=== PATIENT | female | born 1990 | race Caucasian/White ===

== ENCOUNTER → 2019-08-13 10:44 | Outpatient (BNVA) | payer BC, SELFPAY | PROVIDERS: Visit Provider Nurse Practitioner | DX: J02.9 Acute pharyngitis, unspecified (principal) | CPT/HCPCS: 87880 ==

== ENCOUNTER 2023-12-12 05:37 | Inpatient (IN) | payer BC, SELFPAY ==
--- NOTE | 2023-11-29 08:51 | P.ANESASSM_ITS ---
Pre-Anesthetic Assessment Height/Weight: Height 1.6 m Operation Date: 12/12/23 07:00 Proposed Procedures p Section Repeat(Not Applicable) - Mio Brown MD Familial anesthetic complications: C/S following complicated child Was Beta Alicia taken within 24 hours: N/A Was Clonidine taken within 24 hours: N/A Social No alcohol and No tobacco Exam alert, oriented x 3, clear to auscultation bilaterally and regular rate & rhythm Airway Submandibular: within normal limits Cervical ROM: within normal limits Mallampati: Class II Dentition: full Anesthetic Plan ASA status: 2 Anesthesia: Regional (specify below) (SAB) Other: Previous vaginal delivery with complications, this elective section. Medications/Allergies Home Medications Medication Instructions Recorded Confirmed Last Taken Type aspirin 81 mg tablet,delayed 81 mg PO DAILY 08/13/19 08/13/19 Unknown History release (Aspir-) azithromycin 500 mg tablet 500 mg PO DAILY #5 tabs 08/13/19 08/13/19 Unknown Rx (Zithromax) clomiphene citrate 50 mg tablet 50 mg PO DAILY 08/13/19 08/13/19 Unknown History lidocaine HCl 2 % mucosal solution 5 ml mucous membrane Q4H #100 mL 08/13/19 08/13/19 Unknown Rx (Lidocaine Viscous) Allergies Allergy/AdvReac Type Severity Reaction Status Date / Time No Known Allergies Allergy Unverified 08/13/19 08:14 [facility] Anesthesia Medical History (Updated 08/19/19 @ 20:13 by CHANA Molina) PCO (polycystic ovaries) Surgical History (Updated 08/19/19 @ 20:02 by CHANA Molina) History of knee surgery Family History Other Cancer Diabetes Hypertension Denies family history of CAD (coronary artery disease) Social History Smoking and tobacco/nicotine status: never used tobacco/nicotine Second hand smoke exposure: No Alcohol intake: never Substance/Drug Use: never Adopted: No Caregiver/support person: No Lives independently: Yes Household members: spouse and children Housing: House Marital status: Number of children: 1 Highest education level completed: High School Graduate service: No Current occupational status: employed Current occupation: RN Nurse Do you think of yourself as: Straight/Heterosexual Current gender identity: Female Data Anesthesia Cardiac Studies: No Data to Display
[2023-12-12] VITALS (25 sets, daily range): BP systolic 92–122; BP diastolic 47–83; PULSE 55–83; RESP 16–18; TEMP 36.3–36.9; O2SAT 97–100; BMI 34.7
[2023-12-12 05:55] LABS: Basophils # 0.1 10^3/uL (0.0-0.1); Basophils % 0.6 %; Eosinophils # 0.1 10^3/uL (0.0-0.8); Eosinophils % 0.9 %; Hematocrit 34.4 % (36-47); Lymphocytes # 2.5 10^3/uL (0.8-4.8); Lymphocytes % 23.4 %; Mean Corpuscular Hemoglobin 27.6 pg (27-33); Mean Corpuscular Volume 86.4 fl (85-98); Mean Platelet Volume 10.7 fL (7.4-10.4); Monocytes # 0.6 10^3/uL (0.2-0.9); Monocytes % 5.6 %; Neutrophils # 7.33 10^3/uL (1.8-7.7); Nucleated Red Blood Cells % 0 %; Platelet Count 249 10^3/cmm (157-399); Red Blood Count 3.98 10^6/uL (3.85-5.65); Red Cell Distribution Width 12.2 % (12.1-15.1); White Blood Count 10.63 10^3/uL (3.29-11.43)
[2023-12-12] MEDS: lactated ringers 1,000 ML 999 ML IV ×2 (06:12→14:54)
[2023-12-12] MEDS: citric acid-sodium citrate 30 mL UDC PO (06:22)
[2023-12-12] MEDS: metoclopramide 5 mg/mL SDV 2 mL 10 MG IVP (06:22)
[2023-12-12] MEDS: famotidine 20 mg/2 mL INJ IVP (06:24)
--- NOTE | 2023-12-12 06:33 | PM.OBGYHP ---
Providers/Chief Complaint Admitting Physician: Mio Brown MD Primary Care Provider: Mio Brown MD Chief Complaint: C Section HPI PRINCIPAL STATISTICAL SCIENTIST History of Present Illness Savannah Lomeli is a 33 year old female 3 para 1-0-1-1 at 39 weeks estimated gestational age presenting for a primary section due to a history of a vaginal delivery with a fourth degree tear with subsequent complications. Otherwise, she has had an unremarkable . There have been no concerns. She has a consistent care. Labs Other Lab Information: Blood type is a positive. Antibody screen is negative. Rubella immune. Her glucose screen was negative. Group B strep was negative. Her infectious disease profile is within normal limits. Review of Systems General: Reports: 10 or more systems reviewed and unremarkable except in HPI and below Const: Reports: fatigue; Denies: fever(s) Eyes: Denies: change in vision Card: Denies: chest pain Musc: Reports: back pain Angel/Lymph: Denies: easy bruising Medications/Allergies Allergies Allergy/AdvReac Type Severity Reaction Status Date / Time No Known Allergies Allergy Unverified 08/13/19 08:14 PFSH PRINCIPAL STATISTICAL SCIENTIST PFSH: Medical History (Updated 12/12/23 @ 06:38 by Mio Brown MD) Fourth degree perineal tear during delivery with problem PCO (polycystic ovaries) Surgical History History of knee surgery Family History Other Cancer Diabetes Hypertension Denies family history of CAD (coronary artery disease) Social History Smoking and tobacco/nicotine status: never used tobacco/nicotine Second hand smoke exposure: No Alcohol intake: never Substance/Drug Use: never Adopted: No Caregiver/support person: No Lives independently: Yes Household members: spouse and children Housing: House Marital status: Number of children: 1 Highest education level completed: High School Graduate service: No Current occupational status: employed Current occupation: RN Nurse Do you think of yourself as: Straight/Heterosexual Current gender identity: Female Physical Exam Const: COMMON NORMALS: patient oriented x3 and alert HENMT: COMMON NORMALS: moist oral mucous membranes HEAD & SCALP: normal to inspection Chest: COMMONS NORMALS: normal inspection of the chest Resp: COMMON NORMALS: clear to auscultation bilaterally AUSCULTATION: clear to auscultation bilaterally Cardio: COMMON NORMALS: regular rate and regular rhythm RATE: regular rate RHYTHM: regular rhythm GI: INSPECTION: Yes normal to inspection and Yes other (Gravid) Extremity: COMMON NORMALS: normal to inspection GENERAL: Yes edema (Trace) Neuro: COMMON NORMALS: patient oriented x3, moves all extremities and no sensory deficits noted SENSORIUM/ORIENTATION: Yes alert Psych: COMMON NORMALS: mental status grossly normal Skin: COMMON NORMALS: no rashes or lesions noted GENERAL SKIN EXAM: no rashes or lesions noted Data 12/12/23 05:30 Results Labs OB ([facility]): Blood Type Pending 12/12/23 Antibody Screen Pending 12/12/23 Hct 34.4 % (36-47) L 12/12/23 Hgb 11.00 g/dL (11.27-16.99) L 12/12/23 Rho(D) Type Pending 12/12/23 Plt Count 249 10^3/cmm (157-399) 12/12/23 A&P Assessment and plan (1) 39 weeks gestation of : The patient is presenting for a primary section. After her previous vaginal delivery and fourth degree tear, the patient was interested in knowing all of her options. We discussed the risks and alternatives including the risk of having another vaginal delivery versus a section. The patient and her ultimately elected to have a primary section. We have discussed the risk of bleeding, infection, and damage intra-abdominal organs. She has no further questions and wishes to proceed. Attestations Medical Necessity Statement*: I anticipate routine and post care. Coding Level of Care Code Acute Code for Chg Fwd Diagnoses 39 weeks gestation of Z3A.39
[2023-12-12] MEDS: ceFAZolin 2,000 mg SDV 2000 MG IVP (06:34)
--- NOTE | 2023-12-12 06:58 | P.ANESASSM_ITS ---
Pre-Anesthetic Assessment Height/Weight: Height 1.6 m Pulse BP 70 103/62 12/12/23 06:54 12/12/23 06:54 Preop Diagnosis: Hx forth degree tear Operation Date: 12/12/23 07:00 Proposed Procedures p Section Repeat(Not Applicable) - Mio Brown MD Was Beta Alicia taken within 24 hours: N/A Was Clonidine taken within 24 hours: N/A Social No alcohol and No tobacco Exam alert, oriented x 3, clear to auscultation bilaterally and regular rate & rhythm Airway Submandibular: within normal limits Cervical ROM: within normal limits Mallampati: Class II Dentition: full History/ROS No significant history except as noted and No significant complaints Pulmonary None reported CV/HEM None reported None reported Hepatic None reported GI Gastroesophageal Reflux Disease Metabolic None reported Musc/skel None reported Neuropsych None reported Anesthetic Plan ASA status: 2 Anesthesia: Anesthesia Evaluation and Regional (specify below) Other: SAB Risk of > 500 ml blood loss (7ml/kg in children): No Medications/Allergies Allergies Allergy/AdvReac Type Severity Reaction Status Date / Time No Known Allergies Allergy Unverified 08/13/19 08:14 Current Medications Generic Name Dose Route Start Last Admin Trade Name Freq PRN Reason Stop Dose Admin Lactated Ringer's 1,000 mls @ 999 mls/hr 12/12/23 06:04 12/12/23 06:12 Lactated Ringers IV 12/12/23 07:04 999 mls/hr .Q1H1M ONE Administration PFSH Anesthesia Medical History (Updated 12/12/23 @ 06:38 by Mio Brown MD) Fourth degree perineal tear during delivery with problem PCO (polycystic ovaries) Surgical History History of knee surgery Family History Other Cancer Diabetes Hypertension Denies family history of CAD (coronary artery disease) Social History Smoking and tobacco/nicotine status: never used tobacco/nicotine Second hand smoke exposure: No Alcohol intake: never Substance/Drug Use: never Adopted: No Caregiver/support person: No Lives independently: Yes Household members: spouse and children Housing: House Marital status: Number of children: 1 Highest education level completed: High School Graduate service: No Current occupational status: employed Current occupation: RN Nurse Do you think of yourself as: Straight/Heterosexual Current gender identity: Female Data Anesthesia 12/12/23 05:30 Short CBC 12/12/23 Range/Units 05:30 WBC 10.63 (3.29-11.43) 10^3/uL Hgb 11.00 L (11.27-16.99) g/dL Hct 34.4 L (36-47) % MCV 86.4 (85-98) fl Plt Count 249 (157-399) 10^3/cmm Neut % (Auto) 69.0 % Neut # (Auto) 7.33 (1.8-7.7) 10^3/uL Cardiac Studies: 2 No Data to Display
[2023-12-12] MEDS: tranexamic acid 1,000 MG/100 ML PREMIX 600 MG IV (08:10)
--- NOTE | 2023-12-12 08:11 | P.OP_ITS ---
Operative Report Date of procedure: December 12, 2023 Pre-op diagnosis: 1. 33-year-old 2 para 1-0-1-1 at 39 weeks estimated gestational age 2. History of 1/4 degree vaginal tear with previous vaginal delivery and desire for a scheduled section Post-op diagnosis: Same Procedure done: Lower transverse section Specimens removed/disposition: 1. Male with a weight of 8 pounds 4 ounces and Apgars of 8 and 8 2. Placenta with a three-vessel cord delivered intact. Surgeon: Mio Brown MD Estimated blood loss (mL): 1,000 Complications: None Brief History: Refer to H&P Procedure: The patient was brought back to the operating room where she was prepped and draped in usual sterile fashion. Anesthesia was found to be adequate. A lower transverse skin incision was then made with a #10 blade. I then dissected down to the underlying subcutaneous tissue until arriving at the prerectal fascia. The fascia was then nicked with the scalpel bilaterally. The fascial incisions were then carried laterally with Yuen scissors. Attention was then turned to the superior aspect of the incision which was grasped with kochers and tented up away from the underlying rectus abdominis muscles. The muscles were then dissected away from the fascia manually, and later with Yuen scissors. Attention was then turned to the inferior aspect of the incision, and the fascia was dissected away from the underlying muscle in similar fashion. The rectus abdominis muscles were then spread manually. The peritoneum was entered manually. Excellent visualization of the uterus was noted. A lower transverse uterine incision was then made with a #10 blade. Upon arriving at the intrauterine cavity, the uterine incision was then extended manually. The was noted to be in vertex position. The baby was delivered without difficulty. After delivery of the head, the mouth and nose were suctioned at the site of the incision. There was no meconium. There was no nuchal cord. The remainder of the body was then delivered and placed on the abdomen. The cord was cut and clamped. The baby was then handed to the waiting nurse. The placenta was removed intact. The uterus was externalized. The intrauterine cavity was cleansed of any remaining debris. The uterine incision was reapproximated in 2 layers. The first layer was performed with 0 Vicryl in a running locked stitch. The second layer was an imbricating stitch also using 0 Vicryl. The uterus was replaced into the abdo men. The peritoneum was then irrigated with warm saline. I reexamined the uterine incision and found it to be hemostatic. The rectus abdominis muscles were then reapproximated using 0 Vicryl in a running stitch. The fascia was then reapproximated using 0 Vicryl in running stitch. The subcutaneous tissue was then reapproximated using 0 Vicryl in a running stitch. The skin was reapproximated using trini. A sterile dressing was placed. All counts were correct x2. Both the mother and baby were in stable condition.
--- NOTE | 2023-12-12 08:35 | ANE.PACU2 ---
Inpatient post-anesthesia follow up: Airway intact: Yes Vital signs: Temperature 97.3 F Pulse Rate 62 Respiratory Rate 16 Blood Pressure 117/61 Pulse Oximetry 99 Oxygen Delivery Me thod Room Air Oxygen Flow Rate Fraction of Inspir ed Oxygen Hydration adequate: Yes Nausea and vomiting: No Pain level: 1 Mental status: Baseline
[2023-12-12] MEDS: oxytocin 30 UNIT/500 ML BAG 999 UNIT IV (08:57)
[2023-12-12] MEDS: dextrose 5%-lactated ringers 1,000 ML 125 ML IV ×2 (08:58→16:46)
[2023-12-12] MEDS: ketorolac 30 mg/mL INJ IVP ×2 (09:32→14:54)
[2023-12-12] MEDS: diphenhydrAMINE 50 mg/mL SDV 1mL 25 MG IVP (09:32)
[2023-12-12] MEDS: ondansetron 2 mg/ML SDV 2 mL 4 MG IVP (14:54)
[2023-12-12 16:23] LABS: Hematocrit 33.5 % (36-47); Mean Corpuscular HGB Conc 29.9 g/dL (30-55); Mean Corpuscular Hemoglobin 27.8 pg (27-33); Mean Corpuscular Volume 93.1 fl (85-98); Mean Platelet Volume 10.8 fL (7.4-10.4); Platelet Count 182 10^3/cmm (157-399); Red Cell Distribution Width 12.2 % (12.1-15.1); White Blood Count 12.56 10^3/uL (3.29-11.43)
--- NOTE | 2023-12-12 16:32 | PC.NURSE ---
1615 PT AMBULATED 2 FULL LAPS AND DID GREAT.
[2023-12-12] MEDS: HYDROcodone-acetaminophen 5-325 mg Tablet PO (21:44)
[2023-12-12] MEDS: simethicone 80 mg Chew PO (21:44)
[2023-12-13 03:47] VITALS: BP 107/59; PULSE 74; RESP 18; TEMP 36.8
--- NOTE | 2023-12-13 08:49 | P.DS_ITS ---
Discharge Providers BACK JOINER Date of Admission: 12/12/23 05:37 Date of Discharge: 12/21/23 Attending Provider at Admission: Mio Brown MD Attending Provider at Discharge: Mio Brown MD Primary Care Provider: Mio Brown MD Diagnoses at Discharge Discharge Diagnosis (1) 39 weeks gestation of : Status: Resolved Reason for Visit Reason for Visit: C Section Hospital Course Hospital Course The patient presented for a scheduled section due to history of 4th degree tear in her previous vaginal delivery. Her was unremarkable. Her course was also relatively unremarkable. Her pain was well- controlled. Her bleeding was within normal limits. She did have some difficulty with breast-feeding because her baby was not latching well. Information Peripartum Data: Infant Delivery Method: Physical Exam Narrative: She is in no acute distress Lungs are clear auscultation bilaterally Her heart has a regular rate and rhythm Her fundus is below the umbilicus and firm Her dressing is clean, dry and intact Her extremities have trace edema Urinary Catheter Management: Atkinson Latex: Cath Placed During This Visit: yes, but has since been removed by the nurse Reason for Continuing Indwelling Catheter: Decision to DC Catheter Urinary Catheter Date of Insertion: 12/12/23 Urinary Catheter Time of Insertion: 07:15 Date Urinary Catheter Removed: 12/13/23 Time Urinary Catheter Discontinued: 05:19 Discharge Data Studies Completed and Pending Laboratory Results WBC 12.56 10^3/uL (3.29-11.43) H 12/12/23 16:15 RBC 3.60 10^6/uL (3.85-5.65) L 12/12/23 16:15 Hgb 10.00 g/dL (11.27-16.99) L 12/12/23 16:15 Hct 33.5 % (36-47) L 12/12/23 16:15 MCV 93.1 fl (85-98) D 12/12/23 16:15 MCH 27.8 pg (27-33) 12/12/23 16:15 MCHC 29.9 g/dL (30-55) L D 12/12/23 16:15 RDW 12.2 % (12.1-15.1) 12/12/23 16:15 Plt Count 182 10^3/cmm (157-399) 12/12/23 16:15 MPV 10.8 fL (7.4-10.4) H 12/12/23 16:15 Neut % (Auto) 69.0 % 12/12/23 05:30 Lymph % (Auto) 23.4 % 12/12/23 05:30 Kinney % (Auto) 5.6 % 12/12/23 05:30 Eos % (Auto) 0.9 % 12/12/23 05:30 Baso % (Auto) 0.6 % 12/12/23 05:30 Neut # (Auto) 7.33 10^3/uL (1.8-7.7) 12/12/23 05:30 Lymph # (Auto) 2.5 10^3/uL (0.8-4.8) 12/12/23 05:30 Kinney # (Auto) 0.6 10^3/uL (0.2-0.9) 12/12/23 05:30 Eos # (Auto) 0.1 10^3/uL (0.0-0.8) 12/12/23 05:30 Baso # (Auto) 0.1 10^3/uL (0.0-0.1) 12/12/23 05:30 Nucleated RBC % (auto) 0 % 12/12/23 05:30 Nucleated RBCs # 0.0 /100WBC 12/12/23 05:30 Blood Type A Positive 12/12/23 05:30 Rho(D) Type Rh positive 12/12/23 05:30 Antibody Screen Negative 12/12/23 05:30 Vitals Last Vital Signs Temp 98.3 F 12/13/23 03:47 Pulse 74 12/13/23 03:47 Resp 18 12/13/23 03:47 BP 107/59 12/13/23 03:47 Pulse Ox 99 12/12/23 08:30 O2 Del Method Room Air 12/13/23 03:47 Results Labs OB ([facility]): Blood Type A Positive 12/12/23 Antibody Screen Negative 12/12/23 Hct 33.5 % (36-47) L 12/12/23 Hgb 10.00 g/dL (11.27-16.99) L 12/12/23 Rho(D) Type Rh positive 12/12/23 Plt Count 182 10^3/cmm (157-399) 12/12/23 Discharge Plan Discharge Patient Disposition: Home Condition: Stable Prescriptions: New hydrocodone-acetaminophen 5-325 mg Tablet 1 tab PO Q4H PRN (Reason: Moderate To Severe Pain) Qty: 28 0RF Continued Pepcid 20 mg Tablet 20 mg PO BID [id number] 1 mg Tablet 1 tab PO DAILY Discharge Orders: Discharge Order (Routine); Ordered 12/13/23 Ordered By: Mio Brown Referrals: Mio Brown MD [Primary Care Provider] - 12/20/23 10:00 am Discharge Diet: Usual diet Discharge Activity: Limit activity as instructed Patient Instructions: Depression (DC), Opioid Safety (DC), Preeclampsia and Eclampsia After Delivery (GEN), Hemorrhage (DC), OB - Stephanie/Taty, OB Discharge Report, OB Food/Drug Interaction Guide, OB Care at Home, Opioid Safety, Abnormal Bleeding Discharge Attestations BACK JOINER Time Spent in Discharge Care*: less than 30 min Coding Level of Care Code Acute Code for Chg Fwd Diagnoses 39 weeks gestation of Z3A.39
[2023-12-13] MEDS: PRENATAL VIT NO.130/IRON/FOLIC 1 EACH TABLET PO (09:44)
[2023-12-13] MEDS: HYDROcodone-acetaminophen 5-325 mg Tablet 2 TAB PO ×2 (10:58→16:32)
[2023-12-13 11:01] VITALS: BP 116/67; PULSE 81
[2023-12-13 11:03] VITALS: RESP 16; TEMP 37.1
[2023-12-13] MEDS: hydrocortisone 1% cream 28 gm 1 APPLIC TOPICAL (12:09)
[2023-12-13 16:30] VITALS: RESP 18; TEMP 36.9
[2023-12-13 16:34] VITALS: BP 120/57; PULSE 94
[2023-12-13 17:30] VITALS: BP 120/57; PULSE 94; RESP 16; TEMP 36.9
--- NOTE | 2023-12-13 19:20 | PC.NURSE ---
PT HAD TAKEN A SHOWER AND REMOVED HER DRESSING WHILE IN SHOWER AND ALL OF THE TAPE ADHESIVE WAS LEFT SO THIS DELINQUENT TAX COLLECTOR HELPED HER REMOVE MOST OF IT AFTER SHE TRIED, SHE HAD SMALL AREAS ON BOTH SIDES THAT PULLED SOME OF HER SKIN OFF, SO WE GOT HER SOME HYDROCORTISONE CREAM FOR IT AND INSTRUCTED THE CARE OF IT AND GAVE HER SOME ADHESIVE REMOVAL LOTION FOR HER TO USE BEFORE HER NEXT SHOWER.
== END 2023-12-13 17:30 | disposition home or self-care (01) | DRG 788 ==
PROVIDERS: Admitting Provider Family Medicine; PCP Family Medicine; Visit Provider Family Medicine
PROC: 10D00Z1 Extraction of Products of Conception, Low, Open Approach (ICD-10-PCS; CPT 59514; principal; 2023-12-12 06:40)
DX: O75.89 Other specified complications of labor and delivery (principal); O99.284 Endocrine, nutritional and metabolic diseases complicating childbirth; E28.2 Polycystic ovarian syndrome; K21.9 Gastro-esophageal reflux disease without esophagitis; Z3A.39 39 weeks gestation of pregnancy; Z37.0 Single live birth
CPT/HCPCS: 36415; 51702; 59025; 59409; 85025; 85027; 86850; 86900; 96374; 96376; 99211; J0690; J1200; J1885; J2274; J2371; J2405; J2590; J2765; J3010; J3490; J7120; J7121